=== PATIENT | male | born 1995 | race African-American/Black ===

== ENCOUNTER 2017-02-15 18:12 | Emergency (ER) | payer OTHER ==
[~2017-02-15] VITALS: Ht 172.7 cm; Wt 97.9 kg
[2017-02-15 18:26] VITALS: TEMP 36.9; Ht 172.7 cm; Wt 97.9 kg
[2017-02-15] MEDS ORDERED: CETI10TA84 PO (19:29)
--- NOTE | 2017-02-15 19:53 | DIAGNOSTIC IMAGING REPORT ---
CHEST ONE VIEW PORTABLE HISTORY: left arm pain COMPARISON: None. FINDINGS: The lungs are clear. Cardiac silhouette is normal in size. No pleural effusions. No pneumothorax. IMPRESSION: No acute process. Electronically signed by: Ranulfo Espitia M.D. 02/15/2017 7:50 PM Dictated Date/Time: 02/15/2017 7:49 PM
[2017-02-15 20:11] LABS: BASO % 0.3 %; BASO ABS # 0.02 K/uL (0-0.2); COMPLETE YES; EOS % 0.3 %; HEMATOCRIT 46.5 % (42-52); IG% 0.1 %; LYMPH % 18.2 %; LYMPH ABS # 1.28 K/uL (1.2-3.4); MEAN CELL VOLUME 81.7 fL (80-100); MEAN CORPUSCULAR HEMOGLOBIN 28.1 pg (25-34); MEAN CORPUSCULAR HGB CONC 34.4 g/dl (32-36); MEAN PLATELET VOLUME 9.6 fL (7.4-10.4); MONO % 6.1 %; PLATELET COUNT 229 K/uL (130-400); RED BLOOD COUNT 5.69 M/uL (4.7-6.1); WHITE BLOOD COUNT 7.05 K/uL (4.8-10.8)
[2017-02-15 20:27] LABS: BUN/CREATININE RATIO 12.4 (10-20); CALCIUM 9.5 mg/dl (8.5-10.1); CREATININE 1.1 mg/dl (0.60-1.40); POTASSIUM 4.2 mmol/L (3.5-5.1)
[2017-02-15 22:08] VITALS: BP 125/83; PULSE 72; O2SAT 95
--- NOTE | 2017-02-15 23:44 | EMERGENCY ROOM VISIT NOTE ---
History Report prepared by Jayshree: Dave Crandall Under the Supervision of: Dr. Jonel Olson D.O. First contact with patient: 19:03 Chief Complaint: ANXIETY Stated Complaint: SWEATING,ANXIETY,SHOULDER PAIM,ABD PAIN History of Present Illness The patient is a 21 year old male who presents to the Emergency Room with complaints of constant left shoulder pain beginning 4-5 days prior to arrival. He associates anxiety and resolved lower left quadrant abdominal pain with today 's symptoms. The patient notes his abdominal pain began nine hours ago and lasted fro 15 minutes. He denies his left shoulder pain radiating anywhere. The patient notes his last bowel movement was this morning, and it was loose because he has not been eating well recently. He denies anything triggering his anxiety. The patient denies any medical history or previous abdominal surgeries. He denies numbness or weakness of his legs or arms. Pt denies headache, change in vision, swelling of calves, recent travel, coughing up blood , fevers, chest pain, shortness of breath, nausea, vomiting, diarrhea, pain with urination, penile discharge, and melena. Patient denies any history of diabetes, hypertension, hyperlipidemia, CAD or sudden in his family on age. 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 Review of Systems See HPI for pertinent positives & negatives. A total of 10 systems reviewed and were otherwise negative. Past Medical & Surgical Medical Problems: (1) No pertinent past medical history Family History Patient reports no known family medical history. Social History Smoking Status: Never Smoker Marital Status: single Occupation Status: [employer] student Current/Historical Medications Scheduled PRN Cetirizine (Zyrtec), 10 MG PO DAILY PRN for ALLERGIC REACTION Allergies Coded Allergies: No Known Allergies (Unverified , 02/15/17) Physical Exam Vital Signs Date Time Temp Pulse Resp B/P Pulse Ox O2 Delivery O2 Flow Rate FiO2 02/15/17 22:08 72 16 125/83 95 02/15/17 20:18 78 18 127/81 98 Room Air 02/15/17 18:26 36.9 86 18 131/80 96 Room Air Physical Exam GENERAL: sitting up in bed, alert, well appearing, well nourished, no distress, non-toxic EYE EXAM: normal conjunctiva OROPHARYNX: no exudate, no erythema, lips, buccal mucosa, and tongue normal and mucous membranes are moist NECK: supple, no nuchal rigidity, no adenopathy, non-tender LUNGS: Clear to auscultation. Normal chest wall mechanics HEART: no murmurs, S1 normal and S2 normal ABDOMEN: abdomen soft, non-tender, normo-active bowel sounds, no masses, no rebound or guarding. BACK: Minimal tenderness along left medial scapula tracing up to trapezius. Back is symmetrical on inspection and there is no deformity SKIN: no rashes and no bruising UPPER EXTREMITIES: Radial pulses equal. Flexion/extension of shoulder, elbow, and wrist 5/5. Upper extremities are grossly normal. LOWER EXTREMITIES: Calves equal bilaterally. No pitting edema. NEURO EXAM: Normal sensorium, cranial nerves II-XII grossly intact, normal speech, no gross weakness of arms, no gross weakness of legs. Medical Decision & Procedures ER Provider Diagnostic Interpretation: Radiology results as stated below per my review and the radiologist's interpretation: CHEST ONE VIEW PORTABLE HISTORY: left arm pain COMPARISON: None. FINDINGS: The lungs are clear. Cardiac silhouette is normal in size. No pleural effusions. No pneumothorax. IMPRESSION: No acute process. Electronically signed by: Ranulfo Espitia M.D. 02/15/2017 7:50 PM Laboratory Results 02/15/17 19:59 Red Blood Count 5.69, Mean Corpuscular Volume 81.7, Mean Corpuscular Hemoglobin 28.1, Mean Corpuscular Hemoglobin Concent 34.4, Mean Platelet Volume 9.6, Neutrophils (%) (Auto) 75.0, Lymphocytes (%) (Auto) 18.2, Monocytes (%) (Auto) 6.1, Eosinophils (%) (Auto) 0.3, Basophils (%) (Auto) 0.3, Neutrophils # (Auto) 5.29, Lymphocytes # (Auto) 1.28, Monocytes # (Auto) 0.43, Eosinophils # (Auto) 0.02, Basophils # (Auto) 0.02 02/15/17 19:59 Test 02/15/17 19:59 White Blood Count 7.05 K/uL (4.8-10.8) Red Blood Count 5.69 M/uL (4.7-6.1) Hemoglobin 16.0 g/dL (14.0-18.0) Hematocrit 46.5 % (42-52) Mean Corpuscular Volume 81.7 fL (80-100) Mean Corpuscular Hemoglobin 28.1 pg (25-34) Mean Corpuscular Hemoglobin Concent 34.4 g/dl (32-36) Platelet Count 229 K/uL (130-400) Mean Platelet Volume 9.6 fL (7.4-10.4) Neutrophils (%) (Auto) 75.0 % Lymphocytes (%) (Auto) 18.2 % Monocytes (%) (Auto) 6.1 % Eosinophils (%) (Auto) 0.3 % Basophils (%) (Auto) 0.3 % Neutrophils # (Auto) 5.29 K/uL (1.4-6.5) Lymphocytes # (Auto) 1.28 K/uL (1.2-3.4) Monocytes # (Auto) 0.43 K/uL (0.11-0.59) Eosinophils # (Auto) 0.02 K/uL (0-0.5) Basophils # (Auto) 0.02 K/uL (0-0.2) RDW Standard Deviation 34.8 fL (36.4-46.3) RDW Coefficient of Variation 11.8 % (11.5-14.5) Immature Granulocyte % (Auto) 0.1 % Immature Granulocyte # (Auto) 0.01 K/uL (0.00-0.02) D-Dimer < 190 ug/L FEU (0-500) Anion Gap 5.0 mmol/L (3-11) Est Creatinine Clear Calc Drug Dose 122.5 ml/min Estimated GFR () 112.2 Estimated GFR (Non- 96.8 BUN/Creatinine Ratio 12.4 (10-20) Calcium Level 9.5 mg/dl (8.5-10.1) Total Bilirubin 1.3 mg/dl (0.2-1) Direct Bilirubin 0.3 mg/dl (0-0.2) Aspartate Amino Transf (AST/SGOT) 18 U/L (15-37) Alanine Aminotransferase (ALT/SGPT) 33 U/L (12-78) Alkaline Phosphatase 62 U/L (45-117) Total Protein 7.6 gm/dl (6.4-8.2) Albumin 4.0 gm/dl (3.4-5.0) Lipase 106 U/L (73-393) Laboratory results per my review. ECG Indication: back/shoulder pain Rate (beats per minute): 78 Rhythm: sinus rhythm Findings: ST elevation (Slight diffuse), other (Normal axis. No [place] depression.) ED Course ED COURSE: Vital signs were reviewed and showed normal vitals. The patients medical record was reviewed The above diagnostic studies were performed and reviewed. ED treatments and interventions as stated above. 1903: The patient was evaluated in room B8. A complete history and physical examination was performed. 2058: Reevaluated and updated the patient at this time. 2132: Upon reevaluation, the patient is doing well.I discussed my findings with the patient and he understands and agrees with the treatment plan. Based on the patients age, coexisting illnesses, exam and lab findings the decision to treat as an outpatient was made. The patient remained stable while under my care. The patient appeared well at the time of discharge. Medical Decision Differential diagnosis: Etiologies such as fracture, dislocation, neurovascular compromise, compartment syndrome, soft tissue injury, as well as others were entertained. Patient is a 21-year-old male who presents the ER for left shoulder pain and left lower quadrant abdominal pain. The abdominal pain was present earlier this morning for about 10-15 minutes and has completely resolved. Shoulder pain is slightly worsened with movement but is otherwise nonspecific. Labs show no significant leukocytosis or anemia. BMP along with LFTs are unremarkable. Lipase was normal. Bilirubin and direct bilirubin are slightly elevated by 0.1. He has absolutely no abdominal tenderness and never had any right upper quadrant pain and consequently this was not explored any further. D -dimer was negative. Patient has no cardiac risk factors. EKG showed slight diffuse ST segment elevation which I favors likely J-point elevation. No ST depressions to suggest pericarditis. I do not believe this to be cardiac in origin. I favor that this likely muscle skeletal patient was discharged follow- up with his primary care doctor. Discussed with Pt concerning signs and symptoms to watch out for. Pt was instructed to follow up with their PCP and discussed with the patient their option to return to the ED at anytime for persistent or worsening symptoms. The appropriate anticipatory guidance and out- patient management, including indications for return to the emergency department , were explained at length to the patient and understood. Impression Primary Impression: LLQ abdominal pain Additional Impression: Shoulder pain, left Scribe Attestation The scribe's documentation has been prepared under my direction and personally reviewed by me in its entirety. I confirm that the note above accurately reflects all work, treatment, procedures, and medical decision making performed by me. Departure Information Dispostion Home / Self-Care Forms HOME CARE DOCUMENTATION FORM, IMPORTANT VISIT INFORMATION Patient Instructions Abdominal Pain - [facility], [facility] Additional Instructions Please follow up with your primary care doctor or if you are a student [facility] with in the next 24 hours. Any worsening of your symptoms, please return to the ED immediately. This includes chest pain, shortness of breath, passing out, worsening abdominal pain or any other concerning signs or symptoms from your stand point. Problem Qualifiers Additional Impression: Shoulder pain, left Chronicity: acute Qualified Codes: M25.512 - Pain in left shoulder
== END 2017-02-15 22:09 | disposition home or self-care (01) ==
LOC: C.EDB 18:14
DX: R10.32 Left lower quadrant pain (principal); M25.512 Pain in left shoulder

== ENCOUNTER 2017-02-17 10:48 | Emergency (ER) | payer OTHER ==
[~2017-02-17] VITALS: Ht 172.7 cm; Wt 96.5 kg
[~2017-02-17 10:48] MED LIST: CETI10TA84 PO
[2017-02-17 10:54] VITALS: TEMP 36.7; Ht 172.7 cm; Wt 96.5 kg
[2017-02-17] MEDS ORDERED: IBUPROFEN 800 MG TAB PO STA (11:22)
--- NOTE | 2017-02-17 11:30 | EMERGENCY ROOM VISIT NOTE ---
History First contact with patient: 11:06 Chief Complaint: SHOULDER PAIN Stated Complaint: ARM PAIN - BACK APIN - TROUBLE BREATHING History of Present Illness The patient is a 21 year old male who presents to the Emergency Room with complaints of left shoulder and upper back pain for the past 5 days that started after "sleeping on my arm funny." He denies any injury or falls onto the affected area, denies any recent unusual physical activity or weight lifting. He saw a provider at [facility] yesterday who told him to take ibuprofen. He states the ibuprofen has helped some, but today when he got up he still had pain. He has not taken ibuprofen since yesterday. He denies any numbness, tingling, weakness, neck pain, chest pain, shortness of breath, abdominal pain, fever/chills. Review of Systems GENERAL: Denies fevers, chills, malaise, fatigue, unusual weight changes. HEENT: Denies dizziness, visual problems, hearing loss, tinnitus. Denies difficulty swallowing or oral lesions. PULMONARY: Denies cough, shortness of breath, sputum production or hemoptysis. CARDIOVASCULAR: Denies chest pain, palpitations, dyspnea on exertion, orthopnea or peripheral edema. GASTROINTESTINAL: Denies diarrhea, constipation, nausea, vomiting, or abdominal pain. GENITOURINARY: Denies dysuria, frequency, urgency or nocturia. NEUROLOGIC: Denies history of epilepsy, CVA, TIA or chronic headaches. MUSCULOSKELETAL: Denies history of joint tenderness/swelling. SKIN: Denies rashes or lesions. PSYCHIATRIC: Denies history of depression or mental illness. ENDOCRINE: Denies history of diabetes, thyroid disorders, abnormal hair growth or sexual dysfunction. Past Medical/Surgical History Medical Problems: (1) No pertinent past medical history Family History Patient reports no known family medical history. Social History Smoking Status: Never Smoker Marital Status: single Occupation Status: [employer] student Current/Historical Medications Scheduled PRN Cetirizine (Zyrtec), 10 MG PO DAILY PRN for ALLERGIC REACTION Allergies Coded Allergies: No Known Allergies (Unverified , 02/17/17) Physical Exam Vital Signs Date Time Temp Pulse Resp B/P Pulse Ox O2 Delivery O2 Flow Rate FiO2 02/17/17 11:34 83 16 121/80 96 02/17/17 10:54 36.7 83 16 121/80 96 Room Air Physical Exam CONSTITUTIONAL: No acute distress. Well appearing and well nourished. Alert and oriented X 4 with normal affect. HEENT: Normocephalic, atraumatic. Pupils equal, round and reactive to light, EOMI. TMs normal. No pharyngeal erythema or edema. NECK: Supple, full active range of motion without discomfort. RESPIRATORY: Clear to auscultation bilaterally with no wheezing, crackles, rhonchi or stridor. Equal expansion bilaterally. CARDIOVASCULAR: Regular rate and rhythm with no murmurs, rubs or gallops. Normal peripheral perfusion. No edema. GASTROINTESTINAL: Soft, nontender, nondistended. Bowel sounds present in all quadrants. MUSCULOSKELETAL: Full range of motion of all joints without discomfort. Mild tenderness to palpation of the subscapular and left posterior-lateral chest wall muscles, no tenderness of the shoulder joint, full range of motion without pain in the shoulder joint. Neurovascularly intact. Negative Tinel's sign, negative Phalen's sign. INTEGUMENTARY: No rash or other significant dermatologic conditions noted. NEUROLOGIC: Cranial nerves II-XII grossly intact. No focal neurologic deficits noted. Medical Decision & Procedures Medications Administered Medications (Trade) Dose Ordered Sig/Paulina Route Start Time Stop Time Status Last Admin Dose Admin Ibuprofen (Motrin Tab) 800 mg NOW STAT PO 02/17/17 11:22 02/17/17 11:23 DC 02/17/17 11:29 800 MG Medical Decision Patient's symptoms consistent with musculoskeletal pain, exacerbated with palpation and movement. Encourage the patient to continue NSAID therapy with ice and heat, as well as gentle stretching and massage. He was instructed to follow up with his PCP if his symptoms are not improving, and also given return criteria for worsening symptoms. Patient verbalized understanding of all instructions and was comfortable with plan for discharge. Impression Primary Impression: Musculoskeletal back pain Departure Information Dispostion Home / Self-Care Condition GOOD Referrals No Doctor, Assigned (PCP) Patient Instructions ED Muscle Aching, My [facility] Additional Instructions Follow-up with your PCP in the next week. Continue taking ibuprofen 600 mg every 6-8 hours for pain. Alternate ice and heat to the affected area to help relieve her sore muscles. Do gentle stretching and massage to the area. Return to the ER for worsening symptoms, including arm weakness, numbness, severe worsening pain, fevers/chills, or any other concerns.
[2017-02-17 11:34] VITALS: BP 121/80; PULSE 83; O2SAT 96
== END 2017-02-17 11:34 | disposition home or self-care (01) ==
LOC: C.EDB 10:51 → C.EDD 11:34
DX: M54.6 Pain in thoracic spine (principal); M79.1 Myalgia

== ENCOUNTER 2017-02-18 18:31 | Emergency (ER) | payer OTHER ==
[~2017-02-18] VITALS: Ht 172.7 cm; Wt 95.4 kg
[2017-02-18 18:35] VITALS: TEMP 36.7; Ht 172.7 cm; Wt 95.4 kg
[2017-02-18] MEDS ORDERED: SODIUM CHLORIDE 0.9% 1000ML 1,000 ML IV STA (18:49)
[2017-02-18] MEDS ORDERED: KETOROLAC TROMETHAMINE 30 MG/ML VIAL IV STA (18:49)
[2017-02-18] MEDS ORDERED: ONDANSETRON INJ 2 MG/ML 2 ML VIAL IV STA (18:49)
[2017-02-18] MEDS ORDERED: RANITIDINE HCL 150 MG TAB PO STA (18:49)
[2017-02-18 19:29] LABS: BASO % 0.4 %; BASO ABS # 0.03 K/uL (0-0.2); COMPLETE YES; EOS % 0.6 %; HEMATOCRIT 46.8 % (42-52); IG% 0.1 %; LYMPH % 31.9 %; LYMPH ABS # 2.13 K/uL (1.2-3.4); MEAN CELL VOLUME 81.5 fL (80-100); MEAN CORPUSCULAR HEMOGLOBIN 29.1 pg (25-34); MEAN CORPUSCULAR HGB CONC 35.7 g/dl (32-36); MEAN PLATELET VOLUME 9.6 fL (7.4-10.4); MONO % 5.7 %; NEUT % 61.3 %; PLATELET COUNT 207 K/uL (130-400); RED BLOOD COUNT 5.74 M/uL (4.7-6.1); WHITE BLOOD COUNT 6.68 K/uL (4.8-10.8)
--- NOTE | 2017-02-18 19:37 | EMERGENCY ROOM VISIT NOTE ---
History Report prepared by Jayshree: Catrachita Arriola Under the Supervision of: Dr. Gary Chau M.D. First contact with patient: 18:46 Chief Complaint: ANXIETY Stated Complaint: ANXIETY,SIDE PAIN, LEG PAIN History of Present Illness The patient is a 21 year old male who presents to the Emergency Room with complaints of a worsening illness that started about 1 week ago. He states that he is experiencing back pain, left shoulder pain, generalized body aches, and left-sided abdominal pain. He describes the abdominal pain as burning and states that he noticed a lump in his abdomen that is painful. He is also experiencing nausea, but denies vomiting. The patient also denies fevers, cough , sore throat, rhinorrhea, rashes, urinary symptoms, and testicular pain. The patient has been seen in the ED twice within the past week for the same symptoms. He had negative work-ups both times, including negative lab work and films. The patient states that his symptoms have worsened since he was seen in the ED yesterday. He states that the left shoulder pain now radiates into his neck. The patient was also seen at [facility] within the past week. He was started on MiraLAX for constipation. He states that he had a bowel movement, but he does not feel like he experienced relief of his constipation. Additionally, the patient states that his anxiety is making his symptoms worse. He states that his father, who has anxiety, has told him that he has anxiety also. However, the patient denies being diagnosed with anxiety by a physician and he is not on any medications for it. The patient has not noticed any recent tick bites and does not know of any recent exposure to mono. The patient also denies any previous abdominal surgeries. Source of History: patient Onset: one week ago Quality: other (illness) Timing: worsening Associated Symptoms: + abdominal pain (burning), + back pain, + nausea, No cough, No fevers, No rash, No sorethroat, No urinary symptoms, No vomiting Note: anxiety, generalized body aches, left shoulder pain radiating into neck, no rhinorrhea, no testicular pain Review of Systems See HPI for pertinent positives & negatives. A total of 10 systems reviewed and were otherwise negative. Past Medical & Surgical Medical Problems: (1) No pertinent past medical history Family History Patient reports no known family medical history. Social History Smoking Status: Never Smoker Marital Status: single Occupation Status: [employer] student Current/Historical Medications Scheduled PRN Cetirizine (Zyrtec), 10 MG PO DAILY PRN for ALLERGIC REACTION Allergies Coded Allergies: No Known Allergies (Unverified , 02/18/17) Physical Exam Vital Signs Date Time Temp Pulse Resp B/P Pulse Ox O2 Delivery O2 Flow Rate FiO2 02/18/17 21:56 85 18 143/76 99 02/18/17 20:00 92 16 134/81 99 Room Air 02/18/17 18:35 36.7 95 18 149/71 96 Room Air Physical Exam GENERAL: Patient is in no acute distress. HEENT: No acute trauma, normocephalic atraumatic, mucous membranes moist, no nasal congestion, no scleral icterus, no throat erythema or exudate. NECK: No stridor, no adenopathy, no meningismus, trachea is midline. LUNGS: Clear to auscultation bilaterally, no wheeze, no rhonchi, breath sounds equal. HEART: Without murmurs gallops or rubs, regular rate and rhythm. ABDOMEN: Soft, nontender, bowel sounds positive, no hernias, no peritonitis. EXTREMITIES: No cyanosis or edema, full range of motion of all the joints without pain or difficulty, no signs for acute trauma. NEUROLOGIC: Oriented x 3, no acute motor or sensory deficits, no focal weakness. SKIN: No rash, no jaundice, no diaphoresis. PSYCH: Slightly anxious, cooperative, not suicidal. Medical Decision & Procedures ER Provider Diagnostic Interpretation: X-ray results as stated below per interpretation by me and the radiologist: CHEST AND ABDOMEN 2 VIEWS FINDINGS: The lungs are clear. The cardiomediastinal silhouette is within normal limits. There is no pneumoperitoneum or pneumatosis. The bowel gas pattern is unremarkable. No evidence for bowel obstruction. No pathologic calcifications. IMPRESSION: No acute cardiopulmonary process. No evidence for bowel obstruction. Electronically signed by: Ranulfo Espitia M.D. 02/18/2017 8:11 PM Dictated Date/Time: 02/18/2017 8:08 PM Laboratory Results 02/18/17 19:18 Red Blood Count 5.74, Mean Corpuscular Volume 81.5, Mean Corpuscular Hemoglobin 29.1, Mean Corpuscular Hemoglobin Concent 35.7, Mean Platelet Volume 9.6, Neutrophils (%) (Auto) 61.3, Lymphocytes (%) (Auto) 31.9, Monocytes (%) (Auto) 5.7, Eosinophils (%) (Auto) 0.6, Basophils (%) (Auto) 0.4, Neutrophils # (Auto) 4.09, Lymphocytes # (Auto) 2.13, Monocytes # (Auto) 0.38, Eosinophils # (Auto) 0.04, Basophils # (Auto) 0.03 02/18/17 19:18 Test 02/18/17 19:18 02/18/17 19:32 White Blood Count 6.68 K/uL (4.8-10.8) Red Blood Count 5.74 M/uL (4.7-6.1) Hemoglobin 16.7 g/dL (14.0-18.0) Hematocrit 46.8 % (42-52) Mean Corpuscular Volume 81.5 fL (80-100) Mean Corpuscular Hemoglobin 29.1 pg (25-34) Mean Corpuscular Hemoglobin Concent 35.7 g/dl (32-36) Platelet Count 207 K/uL (130-400) Mean Platelet Volume 9.6 fL (7.4-10.4) Neutrophils (%) (Auto) 61.3 % Lymphocytes (%) (Auto) 31.9 % Monocytes (%) (Auto) 5.7 % Eosinophils (%) (Auto) 0.6 % Basophils (%) (Auto) 0.4 % Neutrophils # (Auto) 4.09 K/uL (1.4-6.5) Lymphocytes # (Auto) 2.13 K/uL (1.2-3.4) Monocytes # (Auto) 0.38 K/uL (0.11-0.59) Eosinophils # (Auto) 0.04 K/uL (0-0.5) Basophils # (Auto) 0.03 K/uL (0-0.2) RDW Standard Deviation 35.7 fL (36.4-46.3) RDW Coefficient of Variation 12.1 % (11.5-14.5) Immature Granulocyte % (Auto) 0.1 % Immature Granulocyte # (Auto) 0.01 K/uL (0.00-0.02) Erythrocyte Sedimentation Rate 7 mm/hr (0-14) Anion Gap 10.0 mmol/L (3-11) Est Creatinine Clear Calc Drug Dose 110.9 ml/min Estimated GFR () 101.0 Estimated GFR (Non- 87.1 BUN/Creatinine Ratio 11.8 (10-20) Calcium Level 9.1 mg/dl (8.5-10.1) Total Bilirubin 2.2 mg/dl (0.2-1) Aspartate Amino Transf (AST/SGOT) 14 U/L (15-37) Alanine Aminotransferase (ALT/SGPT) 28 U/L (12-78) Alkaline Phosphatase 65 U/L (45-117) Troponin I < 0.015 ng/ml (0-0.045) Total Protein 7.8 gm/dl (6.4-8.2) Albumin 4.1 gm/dl (3.4-5.0) Globulin 3.7 gm/dl (2.5-4.0) Albumin/Globulin Ratio 1.1 (0.9-2) Thyroid Stimulating Hormone (TSH) 1.800 uIu/ml (0.300-4.500) Free Thyroxine 1.74 ng/dl (0.80-1.60) Lyme Disease IgG Antibody NEG (NEG) Lyme Disease IgM Antibody NEG (NEG) Urine Color DK YELLOW Urine Appearance CLEAR (CLEAR) Urine pH 5.0 (4.5-7.5) Urine Specific [place] 1.023 (1.000-1.030) Urine Protein NEG (NEG) Urine Glucose (UA) NEG (NEG) Urine Ketones 2+ (NEG) Urine Occult Blood NEG (NEG) Urine Nitrite NEG (NEG) Urine Bilirubin NEG (NEG) Urine Urobilinogen NEG (NEG) Urine Leukocyte Esterase NEG (NEG) Laboratory results reviewed by me. Medications Administered Medications (Trade) Dose Ordered Sig/Paulina Route Start Time Stop Time Status Last Admin Dose Admin Sodium Chloride (Nss 1000ml) 1,000 ml @ 999 mls/hr Q1H1M STAT IV 02/18/17 18:49 02/18/17 19:49 DC 02/18/17 19:32 999 MLS/HR Ketorolac Tromethamine (Toradol Inj) 30 mg NOW STAT IV 02/18/17 18:49 02/18/17 18:58 DC 02/18/17 19:33 30 MG Ondansetron HCl (Zofran Inj) 4 mg NOW STAT IV 02/18/17 18:49 02/18/17 18:58 DC 02/18/17 19:33 4 MG Ranitidine HCl (zANTac TAB) 150 mg NOW STAT PO 02/18/17 18:49 02/18/17 18:58 DC 02/18/17 19:33 150 MG ECG Indication: back/shoulder pain Rate (beats per minute): 87 Rhythm: normal sinus Findings: no acute ischemic change, no ectopy ED Course 1848: The patient was evaluated in room B11. A complete history and physical exam was performed. Ordered Zantac Tab 150 mg PO, Zofran Inj 4 mg IV, Toradol Inj 30 mg IV, Sodium Chloride 1000 ml @ 999 mls/hr IV 2111: Reevaluated the patient. Discussed results and discharge instructions: he verbalized understanding and agreement. The patient is ready for discharge. 2149: The patient's parents have arrived in the ED, so I updated on them on the patient's results. Medical Decision Differential diagnoses considered include viral illness, dehydration, constipation, reflux, thyroid disorder, lyme disease, UTI, anxiety. There is no leukocytosis or concerning anemia. Sedimentation rate is not elevated making ongoing inflammation/serious infection less likely. There was no significant electrolyte abnormality, kidney failure or hepatitis. The patient appears to be in a euthyroid state. Urinalysis shows some dehydration, no infection. Obstruction series is negative for bowel obstruction, free air or pneumonia. EKG shows a normal sinus rhythm, no acute ischemia. Cardiac enzyme testing 1 is not consistent with acute cardiac injury. Lyme disease testing was negative. The patient received oral Zantac, IV Zofran, IV Toradol and IV saline, he feels improved. The patient is not toxic or febrile. His illness is likely viral as he complains of all over body aches and pain. I talked with him and his family. I do think he is safe for discharge home, rest, hydration, [id number] counter pain control was suggested. He is not homicidal or suicidal. His anxiety is worsening his situation I suspect but he is not in need of any emergent psychiatric care. Impression Primary Impression: Body aches Additional Impression: Anxiety Scribe Attestation The scribe's documentation has been prepared under my direction and personally reviewed by me in its entirety. I confirm that the note above accurately reflects all work, treatment, procedures, and medical decision making performed by me. Departure Information Dispostion Home / Self-Care Referrals [facility] (PCP) Forms HOME CARE DOCUMENTATION FORM, IMPORTANT VISIT INFORMATION Patient Instructions My [facility] Additional Instructions motrin or tylenol for aches and pain rest stay well hydrated imaging and lab testing was all normal today return if worsening Problem Qualifiers
[2017-02-18 19:49] LABS: ALT/SGPT 28 U/L (12-78); AST/SGOT 14 U/L (15-37); BLOOD UREA NITROGEN 14 mg/dl (7-18); BUN/CREATININE RATIO 11.8 (10-20); CALCIUM 9.1 mg/dl (8.5-10.1); CARBON DIOXIDE 26 mmol/L (21-32); CHLORIDE 105 mmol/L (98-107); GLUCOSE 82 mg/dl (70-99); POTASSIUM 3.5 mmol/L (3.5-5.1); SODIUM 141 mmol/L (136-145)
[2017-02-18 20:00] LABS: ALB/GLOB RATIO 1.1 (0.9-2); ALKALINE PHOSPHATASE 65 U/L (45-117)
[2017-02-18 20:02] LABS: URINE APPEARANCE CLEAR (CLEAR); URINE BILIRUBIN NEG (NEG); URINE COLOR DK YELLOW; URINE NITRITE NEG (NEG); URINE SPECIFIC GRAVITY 1.023 (1.000-1.030); UROBILINOGEN NEG (NEG)
[2017-02-18 20:05] LABS: MANUAL MICROSCOPIC REQUIRED? NO; REVIEW REQ? NO
--- NOTE | 2017-02-18 20:12 | DIAGNOSTIC IMAGING REPORT ---
CHEST AND ABDOMEN 2 VIEWS HISTORY: Generalized abdominal pain. Nausea. COMPARISON: Chest 02/15/2017. FINDINGS: The lungs are clear. The cardiomediastinal silhouette is within normal limits. There is no pneumoperitoneum or pneumatosis. The bowel gas pattern is unremarkable. No evidence for bowel obstruction. No pathologic calcifications. IMPRESSION: No acute cardiopulmonary process. No evidence for bowel obstruction. Electronically signed by: Ranulfo Espitia M.D. 02/18/2017 8:11 PM Dictated Date/Time: 02/18/2017 8:08 PM
[2017-02-18 20:25] LABS: LYME DISEASE AB IGG NEG (NEG); LYME DISEASE AB IGM NEG (NEG)
[2017-02-18 21:56] VITALS: BP 143/76; PULSE 85; O2SAT 99
== END 2017-02-18 21:58 | disposition home or self-care (01) ==
LOC: C.EDB 18:32
DX: F41.9 Anxiety disorder, unspecified (principal); M79.1 Myalgia

== ENCOUNTER 2017-02-20 17:42 | Emergency (ER) | payer OTHER ==
[~2017-02-20] VITALS: Ht 172.7 cm; Wt 97.2 kg
[2017-02-20 17:58] VITALS: TEMP 36.8; Ht 172.7 cm; Wt 97.2 kg
[2017-02-20] MEDS ORDERED: hydrOXYzine HCL 25 MG TAB PO STA (18:33)
--- NOTE | 2017-02-20 18:43 | EMERGENCY ROOM VISIT NOTE ---
History Report prepared by Jayshree: Milvia Brown Under the Supervision of: Dr. Rosa Maria Painter M.D. First contact with patient: 18:09 Chief Complaint: ILLNESS Stated Complaint: PAIN IN THE HEAD,NUMBESS IN ARM, COLD FEET HANDS History of Present Illness The patient is a 21 year old male who presents to the Emergency Room with complaints of worsening neck pain starting 1 day [employer]. The patient currently rates the pain as a 5/10 in severity. The patient states that he has been seen 3 times for similar symptoms recently but states that it has gotten worse today. The patient states that he has numbness and tingling in throughout his arms and into his fingers. The patient states that he also has shooting pain in his left leg that when he stands up goes into his toes. The patient states that he also has upper and lower back pain. The patient's mother states that the patient's hands and colds have also been very cold to the touch. The patient states that he had recent constipation but it has resolved when he started taking miralax, but states that he does have nausea but denies vomiting. The patient states that he is not sure if these symptoms are anxiety related but states that his anxiety has worsened lately because he feels that something is wrong but is not sure what it is. The patient denies taking any drugs to stay awake or drinking any energy drinks. The patient states that he does have history of self harm but states that he has no recent self harm and has seen a counselor in the past. He denies any suicidal or homicidal ideations. 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 A total of 10 systems reviewed and were otherwise negative. Past Medical & Surgical Medical Problems: (1) No pertinent past medical history Family History Patient reports no known family medical history. Social History Smoking Status: Never Smoker Marital Status: single Occupation Status: [employer] student Current/Historical Medications Scheduled Hydroxyzine Pamoate (Vistaril), 25-50 MG PO q6-8 hours Scheduled PRN Acetaminophen (Tylenol), 1,000 MG PO DIRECTED PRN for Pain or Fever Albuterol Hfa (Ventolin Hfa), 2 PUFFS INH Q4H PRN for ASTHMA ATTACKS Cetirizine (Zyrtec), 10 MG PO DAILY PRN for ALLERGIC REACTION Ibuprofen (Advil), 200-600 MG PO Q4H PRN for Pain or Fever Allergies Coded Allergies: Acarides (Mites) (Verified Allergy, Severe, ASTHMA ATTACK, 02/20/17) Dust (Verified Allergy, Severe, ASTHMA ATTACK, 02/20/17) Grass (Verified Allergy, Severe, HIVES, 02/20/17) POLLEN (Verified Allergy, Severe, SNEEZING TO ASTHMA ATTACKS DEPENDS ON POLLEN, 02/20/17) Physical Exam Vital Signs Date Time Temp Pulse Resp B/P Pulse Ox O2 Delivery O2 Flow Rate FiO2 02/20/17 20:16 95 16 134/79 98 Room Air 02/20/17 17:58 36.8 96 18 118/86 98 Room Air Physical Exam Vital signs reviewed. General: Well-appearing male, in no significant distress. HEENT: No scleral icterus, PERRLA, neck supple. Atraumatic. Cardiovascular: Regular rate and rhythm, no extra sounds. Pulmonary: Clear to auscultation bilaterally, normal work of breathing. Abdomen: Soft, nontender, nondistended, positive bowel sounds. Musculoskeletal: Atraumatic, no peripheral edema. Neurologic: Patient awake alert and oriented x 3, full strength in all 4 extremities. Cranial nerves 2 through 12 grossly intact. Skin: Warm, dry, no rash Medical Decision & Procedures ER Provider Diagnostic Interpretation: X-ray results as stated below per interpretation by me and the radiologist: CERVICAL SPINE 5 VIEWS CLINICAL HISTORY: Left-sided neck pain. FINDINGS: AP, lateral, bilateral oblique, and odontoid views of the cervical spine are obtained. No prior studies are available for comparison at the time of dictation. The skeletal structures are well mineralized. There is no radiographic evidence of fracture or subluxation. The odontoid process and lateral masses appear intact on the open mouth view. The spinolaminar line is preserved. Vertebral body height and alignment are maintained. The spinous processes appear intact. The intervertebral disc spaces are normal. There is no evidence of neuroforaminal stenosis on the oblique views. The prevertebral soft tissues are within normal limits. Visualized apical lung parenchyma appears clear. IMPRESSION: Unremarkable radiographic assessment of the cervical spine. Electronically signed by: Gary Ramirez M.D. 02/20/2017 7:39 PM Dictated Date/Time: 02/20/2017 7:38 PM LUMBAR SPINE 5 VIEWS CLINICAL HISTORY: Low back pain. FINDINGS: 5 views of the lumbar spine are obtained. No prior studies are available for comparison at the time of dictation. The skeletal structures are well mineralized. There is no radiographic evidence of fracture or malalignment. Vertebral body height and alignment are maintained. The transverse and spinous processes are intact. There is no evidence of spondylolysis. The intervertebral disc spaces are well-maintained. The visualized bony pelvis appears intact. There is a nonobstructed abdominal bowel gas pattern. IMPRESSION: Unremarkable radiographic evaluation of the lumbosacral spine. Electronically signed by: Gary Ramirez M.D. 02/20/2017 7:38 PM Dictated Date/Time: 02/20/2017 7:38 PM Laboratory Results Test 02/20/17 18:55 Free Thyroxine 1.54 ng/dl (0.80-1.60) Free Triiodothyronine 3.41 pg/ml (2.30-4.20) Laboratory results per my review. Medications Administered Medications (Trade) Dose Ordered Sig/Paulina Route Start Time Stop Time Status Last Admin Dose Admin Hydroxyzine HCl (Vistaril Tab) 50 mg NOW STAT PO 02/20/17 18:33 02/20/17 18:36 DC 02/20/17 18:59 50 MG ED Course 1829: Past medical records reviewed. The patient was evaluated in room A3. A complete history and physical examination was performed. 1833: Ordered Vistaril Tab 50 mg PO. 2019: Upon reevaluation, the patient appeared to have improvement of his symptoms. I discussed findings with the patient and mother. They verbalized agreement of the treatment plan. The patient was discharged home. Medical Decision The patient is a 21 year old male who presents to the ED with complaints of anxiety. Differentials include mood disorder, infection, hypoglycemia, electrolyte abnormalities, cardiac sources, intracerebral event, toxicologic, neurologic, as well as others were entertained. This pt was evaluated and appeared to be in no distress. Pt has multiple complaints. Review of previous records was performed. Lab work reveals a mildly elevated TSH, a FREE T3 and FREE T4 were performed today and are WNL. XR of cervical and lumbar spines were performed and are neg for acute abnl. Pt was given 50 mg of vistaril po with good results. After 4 visits to the ED and no emergent medical cause identified, I addressed concerns over anxiety with pt and his mother. They agree pt needs psych eval as he has a h/o cutting and saw a therapist in middle school. Pt denies any thoughts of self-harm or SI today. He was d./c to mother's care with Rx for vistaril and will return to the ED for worsening of symptoms or any medical concerns. Impression Primary Impression: Anxiety Scribe Attestation The scribe's documentation has been prepared under my direction and personally reviewed by me in its entirety. I confirm that the note above accurately reflects all work, treatment, procedures, and medical decision making performed by me. Departure Information Dispostion Home / Self-Care Prescriptions Hydroxyzine Pamoate (VISTARIL) 25 Mg Cap 25-50 MG PO q6-8 hours, #30 CAP Prov: Rosa Maria Painter M.D. 02/20/17 Referrals No Doctor, Assigned (PCP) Forms HOME CARE DOCUMENTATION FORM, IMPORTANT VISIT INFORMATION, WORK / SCHOOL INSTRUCTIONS Patient Instructions My [facility] Additional Instructions Diagnosis: Anxiety Vistaril 25-50 mg every 68 hours as needed for anxiety. Avoid stimulants such as caffeine, nicotine and energy drinks. Avoid alcohol intake and illicit substance use. Drink plenty of water. Attempt to rest on a regular schedule. Follow-up with your primary care doctor upon return home. Please obtain a psychiatric referral for counseling and medical management. Return to the ER for worsening of symptoms or any medical concerns.
--- NOTE | 2017-02-20 19:39 | DIAGNOSTIC IMAGING REPORT ---
LUMBAR SPINE 5 VIEWS CLINICAL HISTORY: Low back pain. FINDINGS: 5 views of the lumbar spine are obtained. No prior studies are available for comparison at the time of dictation. The skeletal structures are well mineralized. There is no radiographic evidence of fracture or malalignment. Vertebral body height and alignment are maintained. The transverse and spinous processes are intact. There is no evidence of spondylolysis. The intervertebral disc spaces are well-maintained. The visualized bony pelvis appears intact. There is a nonobstructed abdominal bowel gas pattern. IMPRESSION: Unremarkable radiographic evaluation of the lumbosacral spine. Electronically signed by: Gary Ramirez M.D. 02/20/2017 7:38 PM Dictated Date/Time: 02/20/2017 7:38 PM
--- NOTE | 2017-02-20 19:40 | DIAGNOSTIC IMAGING REPORT ---
CERVICAL SPINE 5 VIEWS CLINICAL HISTORY: Left-sided neck pain. FINDINGS: AP, lateral, bilateral oblique, and odontoid views of the cervical spine are obtained. No prior studies are available for comparison at the time of dictation. The skeletal structures are well mineralized. There is no radiographic evidence of fracture or subluxation. The odontoid process and lateral masses appear intact on the open mouth view. The spinolaminar line is preserved. Vertebral body height and alignment are maintained. The spinous processes appear intact. The intervertebral disc spaces are normal. There is no evidence of neuroforaminal stenosis on the oblique views. The prevertebral soft tissues are within normal limits. Visualized apical lung parenchyma appears clear. IMPRESSION: Unremarkable radiographic assessment of the cervical spine. Electronically signed by: Gary Ramirez M.D. 02/20/2017 7:39 PM Dictated Date/Time: 02/20/2017 7:38 PM
[2017-02-20 20:16] VITALS: BP 134/79; PULSE 95; O2SAT 98
[2017-02-20] MEDS ORDERED: ACET-1256 PO (20:21)
[2017-02-20] MEDS ORDERED: IBUP-1050 PO (20:21)
[2017-02-20] MEDS ORDERED: VNTHFA/IN INH (20:21)
[2017-02-20] MEDS ORDERED: HYDR1CAP85 PO (20:35)
== END 2017-02-20 20:45 | disposition home or self-care (01) ==
LOC: C.EDB 17:43 → C.EDA 20:45
DX: F41.9 Anxiety disorder, unspecified (principal); Z79.899 Other long term (current) drug therapy; Z91.09 Other allergy status, other than to drugs and biological substances

== ENCOUNTER → 2017-09-04 | Outpatient (CLI) | payer OTHER ==
[~2017-09-04] MED LIST changes: +ACET-1256 PO; +IBUP-1050 PO; +VNTHFA/IN INH
--- NOTE | 2017-09-04 19:55 | DIAGNOSTIC IMAGING REPORT ---
CT OF THE CHEST WITHOUT IV CONTRAST CLINICAL HISTORY: Intercostal pain. Evaluate for sarcoidosis. COMPARISON STUDY: Chest radiograph February 18, 2017. CT DOSE: 316.29 mGy.cm TECHNIQUE: Axial images of the chest were obtained without IV contrast. Images were reviewed in the axial, sagittal, and coronal planes. IV contrast was not administered for this examination. A dose lowering technique was utilized adhering to the principles of ALARA. FINDINGS: No enlarged axillary, mediastinal or hilar lymph nodes are present. The size of the heart is normal. There is no pericardial effusion. The central airways are patent. There is no consolidation to suggest pneumonia. There are no pulmonary nodules to suggest sarcoidosis by CT. There is no CT evidence of interstitial lung disease. No pneumothorax or pleural effusion is present. Bony thorax and upper abdomen are unremarkable on this unenhanced CT. IMPRESSION: Unremarkable chest CT. No CT evidence of sarcoidosis. Electronically signed by: Gene Mistry M.D. 09/04/2017 7:54 PM Dictated Date/Time: 09/04/2017 4:14 PM
== END | disposition home or self-care (01) ==
LOC: C.CTS 15:57
PROVIDERS: ATTEND Physician Assistant Medical
DX: R07.82 Intercostal pain (principal)